=== PATIENT | female | born 1985 | race Caucasian/White ===

== ENCOUNTER 2017-05-13 07:35 | Inpatient (IN) | payer BC ==
--- NOTE | 2017-05-13 08:24 | P.HPOB ---
History of Present Illness H&P Date: 05/13/17 Chief Complaint: My water broke at 2:30 this morning This is a 31-year-old white female 1 para 0 EDC 05/21/2017 at 38+ weeks gestation. Patient states that she broke her water this morning at 2:30, clear fluid. She is reporting mild irregular contractions to follow. Fetus is been active throughout the . history significant for blood type O+, rubella status immune. Group B strep cultures are positive. Gonorrhea and chlamydia cultures, HIV testing, urine culture, hepatitis B surface antigen all negative. One-hour Glucola 102. Past surgical history is significant only for wisdom teeth extraction. Past medical history is negative. ALLERGIES none known. Current medications loratadine 10 mg tablets once daily, vitamins daily. Social history patient is a teacher, she is , she denies alcohol or drug use. On exam this is a pleasant white female, 5 foot 4-1/2 inches, 167 pounds, vital signs are stable and she is afebrile. The general physical exam is within normal limits. The cervix is 4 cm dilated, 60-70% effaced, vertex presentation , soft. Amnio sure reveals positive ruptured membranes. heart tones are in the 140s with overall good variability. No uterine contractions are noted. Impression: 38+ weeks gestation, spontaneous amniorrhexis, not in active labor. Positive group B strep cultures. Plan: Penicillin G prophylaxis per hospital protocol. Oxytocin per hospital protocol. Close maternal and surveillance. Anticipate normal spontaneous vaginal delivery. Review of Systems Negative except as in HPI Medications and Allergies Allergies Allergy/AdvReac Type Severity Reaction Status Date / Time No Known Allergies Allergy Verified 05/13/17 08:21 Exam See dictation, please Assessment and Plan Plan: Oxytocin per hospital protocol. Penicillin G per hospital protocol. Close maternal and surveillance. Anticipate normal spontaneous vaginal delivery. Time with Patient: Less than 30
[2017-05-13] MEDS ORDERED: METHYLERGONOVINE 0.2 MG/ML 1 ML AMP IM PRN (08:40)
[2017-05-13] MEDS ORDERED: PENICILLIN G POTASSIUM 5,000,000 UNIT in DEXTROSE 5% IN WATER 100 ML IV STA ×2 (08:40)
[2017-05-13] MEDS ORDERED: CARBOPROST TROMETHAMINE 250 MCG/ML 1 ML AMP IM PRN (08:40)
[2017-05-13] MEDS ORDERED: TERBUTALINE 1 MG/ML VIAL SQ PRN (08:40)
[2017-05-13] MEDS ORDERED: OXYTOCIN 10 UNIT/ML 1 ML VIAL IM PRN (08:40)
[2017-05-13] MEDS ORDERED: LIDOCAINE 1% (PF) 10 MG/ML (30 ML SDV) SQ PRN (08:40)
[2017-05-13 08:49] LABS: Basophils % (A) 0 %; CH 31.3; CHCM 34.8; Eosinophils # (A) 0.1 k/uL (0-0.7); Eosinophils % (A) 1 %; HCT 35.1 % (34.0-46.0); HDW 2.53; HGB 12.3 gm/dL (11.4-16.0); Luc % (Auto) 2; Lymphocytes # (A) 2.4 k/uL (1.0-4.8); Lymphocytes % (A) 19 %; MCH 31.6 pg (25.0-35.0); MCV 90.3 fL (80.0-100.0); Mean Platelet Volume 7.4; Monocytes # (A) 0.6 k/uL (0-1.0); Monocytes % (A) 5 %; Neutrophils # (A) 9.2 k/uL (1.3-7.7); Neutrophils % (A) 74 %; RBC 3.89 m/uL (3.80-5.40); RDW 13.1 % (11.5-15.5); WBC 12.5 k/uL (3.8-10.6); WBC (Perox) 13.09
[2017-05-13] MEDS: LACTATED RINGERS 1,000 ML IV SCH ×2 (08:57→11:51)
[2017-05-13] MEDS: OXYTOCIN 20 UNITS/1000 ML NS 1,000 ML IV SCH ×2 (08:59→17:04)
[2017-05-13 09:39] VITALS: BMI 29.5
[2017-05-13] MEDS ORDERED: SODIUM CHLORIDE 0.9% 100 ML BAG ONE (12:20)
[2017-05-13] MEDS ORDERED: BUPIVACAINE (PF) 0.25% 30 ML VIAL ONE (12:20)
[2017-05-13] MEDS ORDERED: fentaNYL (PF) 50 MCG/ML 5 ML AMP ONE (12:20)
[2017-05-13] MEDS ORDERED: PENICILLIN G POTASSIUM 2,500,000 UNIT in DEXTROSE 5% IN WATER 100 ML IV SCH ×2 (13:00)
[2017-05-13] MEDS ORDERED: BUPIVACAINE (PF) 0.25% 25 ML, fentaNYL (PF) 200 MCG in SODIUM CHLORIDE 0.9% 71 ML EPIDURAL ONE (13:10)
[2017-05-13] MEDS ORDERED: ACETAMINOPHEN TAB 325 MG TAB PO PRN (15:05)
[2017-05-13] MEDS ORDERED: BENZOCAINE SPRAY 57GM TOPICAL PRN (15:05)
[2017-05-13] MEDS ORDERED: diphenhydrAMINE 50 MG CAP PO PRN (15:05)
[2017-05-13] MEDS ORDERED: ZOLPIDEM 5 MG TAB PO PRN (15:05)
[2017-05-13] MEDS ORDERED: diphenhydrAMINE 50 MG/ML 1 ML VIAL IVP PRN ×2 (15:05)
[2017-05-13] MEDS ORDERED: SIMETHICONE 80 MG CHEWABLE PO PRN (15:05)
[2017-05-13] MEDS ORDERED: LANOLIN CREAM 5 GM TUBE TOPICAL PRN (15:05)
[2017-05-13] MEDS ORDERED: Acetaminophen-Codeine 300-30mg TAB PO PRN (15:05)
[2017-05-13] MEDS ORDERED: HYDROCORTISONE 2.5% RECTAL CREAM 30 GM TUBE RECTAL PRN (15:05)
[2017-05-13] MEDS ORDERED: diphenhydrAMINE 25 MG CAP PO PRN (15:05)
[2017-05-13] MEDS ORDERED: WITCH HAZEL 1 EACH MED..PAD TOPICAL PRN (15:05)
--- NOTE | 2017-05-13 15:05 | P.PROBDLV ---
Vaginal Delivery Note - . Vaginal Delivery Note: This is a 31-year-old white female 1 para 0 EDC 05/21/2017 at 38-6/7 weeks' gestation. Patient presented with spontaneous amniorrhexis which occurred at 0230 hours, clear fluid. Mild uterine contractions to follow. is remarkable for positive group B strep cultures, please see my dictated history and physical for details. On admission patient was 4 cm dilated 60% effaced. Oxytocin augmentation was started and titrated per hospital protocol. Penicillin G prophylaxis was also given, 2 doses have been received. Patient progressed well through the first stage of labor and was judged to be completely dilated at 1413 hrs. She began the second stage of labor at that time. The perineal body was prepped and draped in usual sterile fashion. With excellent maternal expulsive efforts the head was delivered right occiput posterior. Restituted accordingly, no nuchal cord. The left or anterior shoulder was gently delivered from underneath the pubic symphysis at which time the oropharynx, nasopharynx and external nares were all bulb suctioned on the perineal body. Patient was officially delivered of a liveborn female at 1443 hrs. Umbilical cord was doubly clamped and ligated, she was handed to waiting nurses for evaluation where scores of 9 and 9 at one and 5 minutes respectively were given. Placenta delivered spontaneously, it was inspected and noted to be intact with trivascular cord at 1452 hrs. Uterus was massaged. Inspection of the cervix, vagina, perineum, and periurethral areas revealed a small spontaneous second- degree midline perineal laceration. This was injected with lidocaine and repaired in the usual fashion using 3-0 Vicryl suture for excellent reapproximation. Fundus is firm and in the midline, symmetric and 18 week size. Bleeding was somewhat brisk and therefore Methergine was given IM 1 with excellent resolution. All sponge needle and enhancement counts are correct at the end of this procedure. Patient and her family are allowed to begin the bonding experience in the LDR.
[2017-05-13] MEDS: IBUPROFEN 600 MG TAB PO PRN (16:56)
[2017-05-13] MEDS: SENNOSIDES-DOCUSATE SODIUM 1 EACH TAB PO SCH (21:45)
[2017-05-14] MEDS: LACTATED RINGERS 1,000 ML IV SCH (05:16)
[2017-05-14] MEDS: IBUPROFEN 600 MG TAB PO PRN (07:39)
[2017-05-14] MEDS: SENNOSIDES-DOCUSATE SODIUM 1 EACH TAB PO SCH ×2 (07:40→20:19)
[2017-05-14 08:04] VITALS: RESP 16
--- NOTE | 2017-05-14 08:45 | P.DS ---
Providers Date of admission: 05/13/17 08:20 Expected date of discharge: 05/14/17 Attending physician: Jodi Dominguez Primary care physician: Stated None Hospital Course: This is a 31-year-old white female 1 para 0 who presented at 38-6/7 weeks with spontaneous membranes which occurred at home, clear fluid. was essentially unremarkable, group B strep cultures were noted to be positive. Please see my dictated history and physical for details. Patient was admitted, antibiotics were started as well as oxytocin augmentation. She progressed well, requested epidural and this was placed. She went on to deliver a liveborn female with scores of 9 and 9 at one and 5 minutes respectively. Infant weighed 7 lbs. 4 oz. or 3300 g. There was a small second-degree perineal laceration which was easily repaired for good approximation. Please see my dictated delivery note for details. This morning the patient is doing well. She is voiding, ambulating and passing flatus without difficulty. Vital signs are stable and she is afebrile. Fundus is firm and in the midline, symmetric and 18 week size. Extremities are negative for edema. Breast-feeding is going well. Lochia rubra is minimal to moderate. Pain is well alleviated by Motrin products. Patient is being discharged home in very good condition. I have given her prescription for a double electric breast pump to be used as needed for breast- feeding assistance. I have reminded her no intercourse, tampons or douching. No heavy lifting, nothing per vagina. She will use Aleve products at home as needed for pain. She will call with any fevers shakes or chills, foul smelling or copious lochia, with the passage of large blood clots, with any issues with extremities, any issues with breast-feeding, or indeed with any concerns. Patient Condition at Discharge: Good Plan - Discharge Summary New Discharge Prescriptions: No Action No Known Home Medications [No Known Home Medications] Discharge Medication List No Known Home Medications [No Known Home Medications] 05/13/17 [History] Follow up Appointment(s)/Referral(s): Jodi Dominguez MD [STAFF PHYSICIAN] - 6 Weeks Discharge Disposition: HOME SELF-CARE
[2017-05-14 16:15] VITALS: BP 121/71; PULSE 93; TEMP 98.2
== END 2017-05-14 21:10 | disposition home or self-care (01) | DRG 775 ==
LOC: FBPOP 07:35 → 4FBP 08:20
PROVIDERS: ADMIT Obstetrics & Gynecology; ATTEND Obstetrics & Gynecology
PROC: 10E0XZZ Delivery of Products of Conception, External Approach (ICD-10-PCS; principal; 2017-05-13)
PROC: 0KQM0ZZ Repair Perineum Muscle, Open Approach (ICD-10-PCS; 2017-05-13)
PROC: 00HU33Z Insertion of Infusion Device into Spinal Canal, Percutaneous Approach (ICD-10-PCS; 2017-05-13)
PROC: 3E0R3CZ (ICD-10-PCS; 2017-05-13)
DX: O99.824 Streptococcus B carrier state complicating childbirth (principal); O70.1 Second degree perineal laceration during delivery; Z37.0 Single live birth; Z3A.38 38 weeks gestation of pregnancy
CPT/HCPCS: 59025; 84112; 85025; 88307; 99213

== ENCOUNTER 2020-02-17 05:57 | Inpatient (IN) | payer BC ==
[2020-02-17] MEDS ORDERED: METHYLERGONOVINE 0.2 MG/ML 1 ML AMP IM PRN (06:34)
[2020-02-17] MEDS ORDERED: TERBUTALINE 1 MG/ML VIAL SQ PRN (06:34)
[2020-02-17] MEDS ORDERED: LIDOCAINE 0.5% (PF) 5 MG/ML (50 ML SDV) SQ PRN (06:34)
[2020-02-17] MEDS ORDERED: CARBOPROST TROMETHAMINE 250 MCG/ML 1 ML AMP IM PRN (06:34)
[2020-02-17] MEDS ORDERED: OXYTOCIN 10 UNIT/ML 1 ML VIAL IM PRN (06:34)
[2020-02-17] MEDS ORDERED: PENICILLIN G POTASSIUM 5,000,000 UNIT in DEXTROSE 5% IN WATER 100 ML IVPB STA ×2 (06:34)
[2020-02-17] MEDS ORDERED: OXYTOCIN 30 UNITS/500 ML NS 30 UNIT in SALINE 1 500ML.BAG IV SCH (06:45)
[2020-02-17 06:47] VITALS: RESP 16
[2020-02-17] MEDS: LACTATED RINGERS 1,000 ML IV SCH ×2 (06:55→11:16)
[2020-02-17 07:08] LABS: Basophils % (A) 0 %; Eosinophils # (A) 0.1 k/uL (0-0.7); Eosinophils % (A) 1 %; HCT 37.9 % (34.0-46.0); HGB 12.1 gm/dL (11.4-16.0); Lymphocytes # (A) 3.7 k/uL (1.0-4.8); Lymphocytes % (A) 28 %; MCH 28.2 pg (25.0-35.0); Mean Platelet Volume 8.4; Monocytes # (A) 0.7 k/uL (0-1.0); Monocytes % (A) 5 %; Neutrophils # (A) 8.1 k/uL (1.3-7.7); Neutrophils % (A) 63 %; Platelet Count 278 k/uL (150-450); RBC 4.31 m/uL (3.80-5.40); RDW 15.1 % (11.5-15.5); WBC 12.9 k/uL (3.8-10.6)
--- NOTE | 2020-02-17 08:08 | P.HPOB ---
History of Present Illness H&P Date: 02/17/20 This is a 34-year-old white female 3 para 1011 EDC 02/21/2020 39-3/7 weeks' gestation. Patient presents today for elective induction. She has been having mild irregular uterine contractions. Fetus is been active throughout the . She denies vaginal bleeding or fluid leakage. history significant for rubella status immune, group strep cultures positive, blood type O-. Gonorrhea and chlamydia cultures, HIV testing, hepatitis B surface antigen all negative. One-hour Glucola 132. Urine culture negative. VDRL negative. Family history is essentially unremarkable. ALLERGIES none known. Current medications vitamins daily. Surgical history wisdom teeth extracted, colposcopy. Past medical history is significant for HPV changes noted. On exam this is a pleasant female who is 5 foot 4 inches, 168 pounds, blood pressure 139/83 on admission. General physical exam is within normal limits. Chest is clear in all aranda. Extremities reveal no edema. heart rate is consistent with reactive NST. Cervix is 4 cm dilated, 70% effaced, -2 station, vertex presentation, anterior and soft. Artificial amniorrhexis reveals clear fluid. Impression: 39-3/7 weeks intrauterine , here for induction, all signs reassuring, positive group B strep cultures noted. Plan: Penicillin G prophylaxis has been instituted and will continue per hospital protocol. Continue close maternal and surveillance. Analgesic options have been reviewed with the patient. Anticipate normal spontaneous vaginal delivery. Review of Systems Constitutional: Reports as per HPI Past Medical History Past Medical History: No Reported History History of Any Multi-Drug Resistant Organisms: None Reported Additional Past Surgical History / Comment(s): wisdom teeth Past Anesthesia/Blood Transfusion Reactions: No Reported Reaction Past Psychological History: No Psychological Hx Reported Smoking Status: Never smoker Past Alcohol Use History: None Reported Past Drug Use History: None Reported - Past Family History Father Family Medical History: No Reported History Medications and Allergies Home Medications Medication Instructions Recorded Confirmed Type Ferrous Sulfate [Iron] 325 mg PO DAILY 02/17/20 02/17/20 History Pnv No.95/Ferrous Fum/Folic AC 1 each PO DAILY 02/17/20 02/17/20 History [ Multivitamin Tablet] Allergies Allergy/AdvReac Type Severity Reaction Status Date / Time No Known Allergies Allergy Verified 03/25/20 06:32 Exam Vital Signs Temp Pulse Resp BP Pulse Ox 02/17/20 06:32 96.3 F L 100 16 139/83 98 Intake and Output 02/16/20 02/17/20 02/17/20 22:59 06:59 14:59 Other: Weight 76.204 kg See dictation under HPI please Results Result Diagrams: 02/17/20 06:25 Abnormal Lab Results - Last 24 Hours (Table) 02/17/20 Range/Units 06:25 WBC 12.9 H (3.8-10.6) k/uL Neutrophils # 8.1 H (1.3-7.7) k/uL Assessment and Plan Assessment: 39-3/7 weeks intrauterine , here for elective induction of labor. All signs reassuring. Plan: Penicillin G per hospital protocol. Oxytocin per hospital protocol. Close maternal and surveillance. Anticipate normal spontaneous vaginal delivery. Time with Patient: Less than 30
[2020-02-17] MEDS ORDERED: PENICILLIN G POTASSIUM 2,500,000 UNIT in DEXTROSE 5% IN WATER 100 ML IVPB SCH ×2 (11:00)
[2020-02-17] MEDS ORDERED: ROPIVACAINE 100 MG, fentaNYL (PF) 200 MCG in SODIUM CHLORIDE 0.9% 76 ML EPIDURAL ONE (12:20)
[2020-02-17] MEDS ORDERED: diphenhydrAMINE 50 MG/ML 1 ML VIAL IVP PRN ×2 (13:03)
[2020-02-17] MEDS ORDERED: WITCH HAZEL 1 EACH MED..PAD TOPICAL PRN (13:03)
[2020-02-17] MEDS ORDERED: SIMETHICONE 80 MG CHEWABLE PO PRN (13:03)
[2020-02-17] MEDS ORDERED: diphenhydrAMINE 50 MG CAP PO PRN (13:03)
[2020-02-17] MEDS ORDERED: HYDROCORTISONE 2.5% RECTAL CREAM 30 GM TUBE RECTAL PRN (13:03)
[2020-02-17] MEDS ORDERED: diphenhydrAMINE ELIXIR 25 MG/10 ML CUP PO PRN (13:03)
[2020-02-17] MEDS ORDERED: ACETAMINOPHEN TAB 325 MG TAB PO PRN (13:03)
[2020-02-17] MEDS ORDERED: ZOLPIDEM 5 MG TAB PO PRN (13:03)
[2020-02-17] MEDS ORDERED: LANOLIN CREAM 5 GM TUBE TOPICAL PRN (13:03)
[2020-02-17] MEDS ORDERED: diphenhydrAMINE 25 MG CAP PO PRN (13:03)
[2020-02-17] MEDS ORDERED: BENZOCAINE/MENTHOL SPRAY 1 GM/SPRAY AEROSOL TOPICAL PRN (13:03)
--- NOTE | 2020-02-17 13:03 | P.PROBDLV ---
Vaginal Delivery Note - . Vaginal Delivery Note: This is a 34-year-old white female 3 para 1011 EDC 02/21/2020 at 39-3/7 weeks' gestation. Patient presented for induction with favorable multiparous cervix. Positive group B strep cultures. Blood type O-. Rubella status immune. Please see dictated history and physical for details. Penicillin G prophylaxis was given 2 doses per hospital protocol. Oxytocin was started and titrated per hospital protocol. She requested an epidural and this was placed without difficulty per the anesthesia staff. Patient progressed well, heart tones reassuring throughout the first and second stages of labor. She became completely dilated at 1224 hrs. and began the second stage of labor at that time. Prepped and draped in usual sterile fashion. With excellent maternal expulsive efforts the head delivered occiput anterior and restituted accordingly. There was a nuchal cord 1 that was reduced on the perineal body. The left or anterior shoulder was gently delivered from underneath the pubic symphysis at which time the oropharynx, nasopharynx, and external nares were all bulb suctioned. Patient officially delivered a liveborn female infant at 1244 hours. The umbilical cord was doubly clamped and ligated, she was handed to waiting nurses for evaluation where scores of 9 and 9 at one and 5 minutes respectively were given. The placenta delivered spontaneously, it was inspected and noted to be intact with trivascular cord at 1244 hours. The uterus is massaged. Careful inspection of the cervix, vagina, perineum, and periurethral areas reveals a small first-degree perineal laceration at 6:00. This is repaired in the usual fashion using 3-0 repeat suture. Infant's weight 8 lbs. 1 oz., 3640 g. Patient and her are allowed to begin the bonding experience in the LDR. Total estimated blood loss 250 mL's.
[2020-02-17] MEDS ORDERED: OXYTOCIN 20 UNITS/1000 ML NS 1,000 ML IV SCH (13:15)
[2020-02-17] MEDS ORDERED: Rhogam IMMUNE GLOBULIN 1,500 UNIT/1 ML IM ONE (18:55)
[2020-02-17] MEDS: IBUPROFEN 600 MG TAB PO PRN (19:41)
[2020-02-17] MEDS: SENNOSIDES-DOCUSATE SODIUM 1 EACH TAB PO SCH (19:42)
[2020-02-18] MEDS: IBUPROFEN 600 MG TAB PO PRN (07:49)
[2020-02-18] MEDS: SENNOSIDES-DOCUSATE SODIUM 1 EACH TAB PO SCH (07:50)
[2020-02-18 09:11] VITALS: BP 119/72; PULSE 83; TEMP 97.4
--- NOTE | 2020-02-18 09:52 | P.DS ---
Providers Date of admission: 02/17/20 05:57 Expected date of discharge: 02/18/20 Attending physician: Jodi Dominguez Primary care physician: Stated None Hospital Course: This is a 34-year-old white female 3 para 1011 EDC 02/21/2020 39-3/7 weeks' gestation. Patient presented for induction with favorable cervix. Fetus is been active throughout the . essentially unremarkable, group B strep cultures positive, rubella status immune, blood type O negative. Please see my dictated history and physical for details. Artificial amniorrhexis revealed clear fluid. Oxytocin was started and titrated per hospital protocol. Antibiotic prophylaxis was given, 2 doses received per protocol. Epidural placed per her request. Labor was unremarkable, and the patient went on to deliver vaginally a liveborn female infant with scores of 9 and 9 at one and 5 minutes respectively. Infant weight 8 lbs. 1 oz. or 3645 g. There was a nuchal cord 1 that was reduced. A small first-degree perineal laceration easily repaired, and an estimated blood loss recorded of 250 mL's. Please see my dictated delivery note for details. This morning the patient is doing well. She is voiding, ambulating, passing flatus without difficulty. Vital signs are stable and she is afebrile. Breasts are not engorged. Blaine is doing well, has been discharged by the rn pacu. The patient's fundus is firm, midline, symmetric, 18 week size. Extremities are negative for edema. Perineal body is clean and dry and lochia rubra is minimal. Patient is judged to be in very good condition for discharge home. She will follow-up with me in the office in 6 weeks. She is reminded no intercourse, tampons or douching. She will use [id number] ibuprofen products as needed for pain, taking her vitamin daily. Given her prescription for a double electric breast pump. She will call the office with any fevers shakes or chills, foul smelling or copious lochia, with the passage of large blood clots, with any pain not alleviated by ibuprofen, or indeed with any concerns. Patient Condition at Discharge: Good Plan - Discharge Summary Discharge Rx Participant: No New Discharge Prescriptions: No Action Pnv No.95/Ferrous Fum/Folic AC [ Multivitamin Tablet] 1 each PO DAILY Ferrous Sulfate [Iron] 325 mg PO DAILY Discharge Medication List Ferrous Sulfate [Iron] 325 mg PO DAILY 02/17/20 [History] Pnv No.95/Ferrous Fum/Folic AC [ Multivitamin Tablet] 1 each PO DAILY 02/17/20 [History] Follow up Appointment(s)/Referral(s): Jodi Dominguez MD [STAFF PHYSICIAN] - 6 Weeks
== END 2020-02-18 13:30 | disposition still patient (30) | DRG 807 ==
LOC: 4FBP 05:57
PROVIDERS: ADMIT Obstetrics & Gynecology; ATTEND Obstetrics & Gynecology
DX: O69.81X0 Labor and delivery complicated by cord around neck, without compression, not applicable or unspecified (principal); Z37.0 Single live birth; O70.0 First degree perineal laceration during delivery; Z3A.39 39 weeks gestation of pregnancy
CPT/HCPCS: 85025; 85461; 86850; 86870; 86880; 86900; 86901